=== PATIENT | female | born 1955 | race Caucasian/White ===

== ENCOUNTER 2024-06-02 15:55 | Observation (INO) | payer OTHER, SELFPAY ==
[2024-06-02] VITALS (19 sets, daily range): BP systolic 119–165; BP diastolic 54–77; PULSE 67–87; RESP 14–26; TEMP 36.1–36.9; O2SAT 96–100; BMI 23.6; BMI 24.0
--- NOTE | 2024-06-02 16:03 | DI.RAD.S_ITS ---
PROCEDURE: XR CHEST 1V INDICATIONS: chest pain TECHNIQUE: One view of the chest was acquired. COMPARISON: None. FINDINGS: Surgical changes and devices: None. Lungs and pleura: Lungs are clear. No pleural effusions or pneumothorax. Mediastinum: Mediastinal contours appear normal. Heart size is normal. Bones and chest wall: No suspicious bony lesions. Overlying soft tissues appear unremarkable. IMPRESSION: No acute cardiopulmonary abnormality is seen. Dictated by: Nikolas Davies M.D. on 06/02/2024 at 16:26 Approved by: Nikolas Davies M.D. on 06/02/2024 at 16:26
--- NOTE | 2024-06-02 16:10 | EKG_ITS ---
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
[2024-06-02 16:18] LABS: Basophils Absolute Auto 100 /uL (0-100); Basophils Percent Auto 0.6 % (0-2); Eosinophils Absolute Auto 0 /uL (0-450); Eosinophils Percent Auto 0.1 % (2-4); Hematocrit 21.3 % (36-46); Lymphocytes Absolute Auto 1600 /uL (1100-4500); Lymphocytes Percent Auto 13.3 % (25-40); Mean Corpuscular HGB Conc 29.2 % (30-36); Mean Corpuscular Volume 58.3 fL (80-100); Monocytes Absolute Auto 400 /uL (0-900); Monocytes Percent Auto 3.7 % (3-14); Neutrophils Absolute Auto 9700 /uL (1500-7000); Neutrophils Percent Auto 82.3 % (50-75); Platelet Count 354 X10^3/uL (150-400); Red Blood Cell Count 3.64 X10^6/uL (4.0-5.2); Red Cell Distribution Width 18.9 % (11.6-14.8); White Blood Cell Count 11.8 X10^3/uL (4.5-11.0)
[2024-06-02 16:20] LABS: Add Manual Diff / Slide Review SLIDE REVIEW; Hemoglobin 6.2 g/dL (12.0-16.0)
[2024-06-02 16:23] LABS: INR 1.2 (0.9-1.3); Prothrombin Time 13.3 SECONDS (9.4-12.5)
[2024-06-02 16:26] LABS: PTT Partial Thromboplastin Tim 43 SECONDS (25.1-36.5)
[2024-06-02 16:27] LABS: Alanine Aminotransferase 14 IU/L (<35); Albumin 4.3 g/dL (3.5-5.0); Albumin Globulin Ratio 1.5 (1.0-2.8); Alkaline Phosphatase 85 U/L (38-126); Aspartate Aminotransferase 25 IU/L (14-36); BUN Creatinine Ratio 23.8 (6-22); Bilirubin Total 0.5 mg/dL (0.2-1.3); Blood Urea Nitrogen 24 mg/dL (7-17); Calcium 9.7 mg/dL (8.4-10.2); Carbon Dioxide 21 mmol/L (22-32); Chloride 105 mmol/L (98-107); Creatine Kinase 59 U/L (30-135); Estimated Glomerular Filt Rate 60 mL/min (>60); Globulin 2.9 g/dL (1.7-4.1); Glucose 120 mg/dL (80-110); HEMOLYSIS < 15 (0-50); Lipase 99 U/L (23-300); Magnesium 2.1 mg/dL (1.6-2.3); Potassium 3.9 mmol/L (3.4-5.1); Sodium 136 mmol/L (137-145); Total Protein 7.2 g/dL (6.3-8.2)
[2024-06-02 16:39] LABS: NT-proBNP (BNP-Adult 18+) 428 pg/mL (<125); Troponin I < 0.012 ng/mL (0.01-0.034)
[2024-06-02 16:53] LABS: Hypochromasia 3+; Microcytosis 3+
--- NOTE | 2024-06-02 16:59 | ED_ITS ---
HPI - General Adult General Chief complaint: Syncope Stated complaint: syncope, racing heart Time Seen by Provider: 06/02/24 16:08 Source: patient and family Mode of arrival: Family Vehicle History of Present Illness HPI narrative: 69-year-old woman [place] from [place] history of atrial fibrillation anticoagulated on Eliquis, history of ulcerative colitis with a colectomy and an internal J-pouch follow up by a colorectal surgeon in [place]. Presents today after a syncopal episode walking up a slight incline. She has not been having nausea, vomiting, palpitations no dyspnea but has been feeling a bit more fatigued. She notes she occasionally has bright red blood from her rectum but this is self-limited and it most every 3 weeks. She does have some external hemorrhoidal tags and was concerned that wears where the blood was coming from. She has never had gastritis or gastric ulcers to her knowledge. No fevers, cough, chills no chest pressure or pain. Review of Systems Review of Systems Narrative: Pertinent positive and negative findings as per HPI Patient History Medical History Paroxysmal atrial fibrillation Crohn's disease Social History Smoking Status: Former smoker Smoking Status: Former smoker tobacco type: cigarettes alcohol intake frequency: 0-2 drinks per day Substance Use Type: does not use Exam Initial Vital Signs Initial Vital Signs: Vital Signs Pulse Rate 83 06/02/24 16:06 Pulse Oximetry 100 06/02/24 16:06 General: Healthy appearing, in no acute distress. Able to give a complete and coherent history. Well-nourished well-developed HEENT: Moist mucous membranes, normal sclera with reactive pupils, Respiratory: Lungs are clear to auscultation, no wheezing no rales no rhonchi. Full and symmetrical air movement Cardiac: Regular rate and rhythm no murmurs no bruits Abdomen: Soft, nontender, good bowel tones, no flank pain Rectal exam: Small noninflamed external hemorrhoids. Very small anus she rarely has any formed stools. Q-tip was used for internal exam and does show red blood mixed with stool that is guaiac positive Skin: Slightly pale but otherwise Warm and dry, no rashes Neurologic: Grossly neurologically intact with no obvious asymmetries or abnormalities Extremities: No trauma, well perfused Psych: Cooperative, appropriate insight and affect Course Orders Ordered: ED Orders 06/02/24 16:03 XR chest 1V Stat EKG-12 Lead Stat 06/02/24 16:07 Complete Blood Count AUTO DIFF Stat Comprehensive Metabolic Panel Stat Lipase Stat Magnesium Stat NT-proBNP (BNP-Adult 18+) Stat PTT Partial Thromboplastin Gabriel Stat Prothrombin Time INR Stat Troponin & CK Cardiac Panel Stat 06/02/24 16:26 PRBC [Packed Cells] Stat Type and Screen Stat Acetaminophen (Acetaminophen 325 Mg Tablet) 650 mg PO Q6H PRN PRN Reason: Fever/Mild Pain (1-3) Amlodipine Besylate (Amlodipine 5 Mg Tablet) 5 mg PO DAILY FARHANA Levothyroxine Sodium (Levothyroxine 100 Mcg Tablet) 100 mcg PO DAILY@0600 FARHANA Naloxone HCl (Naloxone 0.4 Mg/Ml Vial) 0.2 mg IV Q2MIN PRN PRN Reason: Opiate Reversal Discontinued Medications Aspirin (Aspirin 81 Mg Chew Tab) 324 mg PO NOW ONE Stop: 06/02/24 16:04 Last Admin: 06/02/24 16:21 Dose: Not Given Documented By: Pantoprazole Sodium (Pantoprazole 40 Mg Vial) 80 mg IV NOW ONE Stop: 06/02/24 17:18 Last Admin: 06/02/24 17:34 Dose: 80 mg Documented By: RLS Vital Signs Vital signs: Vital Signs - 8 hr 06/02/24 16:06 06/02/24 16:07 06/02/24 16:07 Temperature Pulse Rate 83 77 Respiratory Rate 25 H Blood Pressure 150/73 H Pulse Oximetry 100 100 Oxygen Delivery Method 06/02/24 16:09 06/02/24 16:30 06/02/24 16:30 Temperature 98.5 F Pulse Rate 87 84 Respiratory Rate 14 19 Blood Pressure 150/73 H 159/71 H Pulse Oximetry 99 99 Oxygen Delivery Method Room Air 06/02/24 17:00 06/02/24 17:00 06/02/24 17:15 Temperature Pulse Rate 83 84 Respiratory Rate 26 H 17 Blood Pressure 156/72 H Pulse Oximetry 100 100 Oxygen Delivery Method 06/02/24 17:30 06/02/24 17:30 Temperature Pulse Rate 78 Respiratory Rate 20 Blood Pressure 165/77 H Pulse Oximetry 99 Oxygen Delivery Method Medical Decision Making Lab Data 06/02/24 16:07 06/02/24 16:07 Labs: Lab Results 06/02/24 06/02/24 Range/Units 16:07 16:26 WBC 11.8 H (4.5-11.0) X10^3/uL RBC 3.64 L (4.0-5.2) X10^6/uL Hgb 6.2 L* (12.0-16.0) g/dL Hct 21.3 L (36-46) % MCV 58.3 L (80-100) fL MCH 17.0 L (26-34) PG MCHC 29.2 L (30-36) % RDW 18.9 H (11.6-14.8) % Plt Count 354 (150-400) X10^3/uL Neut % (Auto) 82.3 H (50-75) % Lymph % (Auto) 13.3 L (25-40) % [place] % (Auto) 3.7 (3-14) % Eos % (Auto) 0.1 L (2-4) % Baso % (Auto) 0.6 (0-2) % Neut # (Auto) 9700 H (7507-2476) /uL Lymph # (Auto) 1600 (4959-9186) /uL [place] # (Auto) 400 (0-900) /uL Eos # (Auto) 0 (0-450) /uL Baso # (Auto) 100 (0-100) /uL RBC Morphology See below Hypochromasia 3+ H Microcytosis 3+ H PT 13.3 H (9.4-12.5) SECONDS INR 1.2 (0.9-1.3) APTT 43 H (25.1-36.5) SECONDS Sodium 136 L (137-145) mmol/L Potassium 3.9 (3.4-5.1) mmol/L Chloride 105 (98-107) mmol/L Carbon Dioxide 21 L (22-32) mmol/L BUN 24 H (7-17) mg/dL Creatinine 1.01 (0.52-1.04) mg/dL Estimated GFR 60 (>60) mL/min BUN/Creatinine Ratio 23.8 H (6-22) Glucose 120 H (80-110) mg/dL Calcium 9.7 (8.4-10.2) mg/dL Magnesium 2.1 (1.6-2.3) mg/dL Total Bilirubin 0.5 (0.2-1.3) mg/dL AST 25 (14-36) IU/L ALT 14 (<35) IU/L Alkaline Phosphatase 85 (38-126) U/L Total Creatine Kinase 59 (30-135) U/L Troponin I < 0.012 (0.01-0.034) ng/mL NT-Pro-B Natriuret Pep 428 H (<125) pg/mL Total Protein 7.2 (6.3-8.2) g/dL Albumin 4.3 (3.5-5.0) g/dL Globulin 2.9 (1.7-4.1) g/dL Albumin/Globulin Ratio 1.5 (1.0-2.8) Lipase 99 (23-300) U/L Blood Type A Positive Antibody Screen Negative Crossmatch See Detail MDM Narrative Medical decision making narrative: CC: Syncopal episode Complicating co-morbidities: Paroxysmal atrial fibrillation, anticoagulated, history of ulcerative colitis Data collected from: patient Social determinants of health that may influence the patients condition: Patient is on vacation, currently lives in [place] Differential considered: AFib with RVR, congestive heart failure, acute coronary syndrome TIA Exam documented above, pertinent findings include: Exam is relatively benign. Rectal exam shows very small anus but she is guaiac positive Lab Test results independently reviewed as above. Pertinent findings: Chemistries are reassuring ProBNP is minimally elevated at 428 Troponin is undetectable CBC shows hemoglobin of 6.2 with a hematocrit of 21.3. MCV is 58.3 platelet count is appropriate Independently reviewed EKG: Sinus rhythm at a rate of 75 with no acute ischemic changes Imaging studies independently reviewed: Chest x-ray is unremarkable no acute infiltrates or congestive heart failure Consultations: Care is discussed with Dr. Whitt, General surgery. She agrees with hospitalization, transfusion and discharge with outpatient follow up with her colorectal surgeon when she gets back to [place] Treatments: Fluids, 2 units of packed cells will be administered, 80 mg of IV Protonix Discussion: 69-year-old woman with a syncopal episode that likely is related to her hemoglobin of 6.2 secondary to chronic blood loss from her GI tract unclear if it is related to bleeding from her colon surgery or upper endoscopy. It does look like it is chronic and finally hit the tipping point where she was having hemodynamic symptoms. We will be admitted to our hospitalist service, cardiac workup will be completed. Will anticipate discharge home for outpatient GI follow up with her colorectal surgeon unless symptoms change or she has more prolific bleed bleeding appreciated. Discharge Plan Departure Patient Disposition: Admitted as Observation Clinical Impression: Syncope due to orthostatic hypotension, Acute blood loss anemia, AF (paroxysmal atrial fibrillation), Anticoagulated Admit Date/Time: 06/02/24 17:34 Admit Provider: Gurpreet Bennett V
[2024-06-02] MEDS: PANTOPRAZOLE 40 MG VIAL 80 MG IV (17:34)
--- NOTE | 2024-06-02 17:44 | PM.HP.1 ---
History of Present Illness History of Present Illness Date Patient Seen: 06/02/24 Time Patient Seen: 17:15 Date of Onset of Symptoms: 06/02/24 Chief complaint: syncope, racing heart Narrative: 69-year-old woman visiting [place] from her home in [place] had just arrived and was walking on the beach when she experienced a syncopal episode. She felt that her heart was racing. She has had a history of ulcerative colitis, status post total colectomy with internal pouch, and mostly experiences diarrheal stools will with visible blood every 2-3 weeks. She also has external hemorrhoids that intermittently flare and bleed. She is followed by sap pi architect in [place]. She had a single episode of paroxysmal atrial fibrillation last May, without recurrence, and is on Eliquis 5 mg twice daily. She denies NSAID or aspirin use. No nausea, vomiting, abdominal pain, chest pain, shortness of breath, and denies injuries associated with her syncopal episode. She was evaluated by medics and brought to the emergency department for further evaluation. She has hypothyroidism and takes levothyroxine 100 mg daily, hypertension on amlodipine 5 mg daily, hyperlipidemia on rosuvastatin 5 mg daily and also takes chewable calcium and apple vinegar chews. [facility] Medical History Paroxysmal atrial fibrillation Crohn's disease Social History Smoking Status: Former smoker Exam Vital Signs (past 8 hours): - 06/02/24 16:06 06/02/24 16:07 06/02/24 16:07 Temperature Pulse Rate 83 77 Respiratory Rate 25 H Blood Pressure 150/73 H Pulse Oximetry 100 100 Oxygen Delivery Method 06/02/24 16:09 06/02/24 16:30 06/02/24 16:30 Temperature 98.5 F Pulse Rate 87 84 Respiratory Rate 14 19 Blood Pressure 150/73 H 159/71 H Pulse Oximetry 99 99 Oxygen Delivery Method Room Air 06/02/24 17:00 06/02/24 17:00 Temperature Pulse Rate 83 Respiratory Rate 26 H Blood Pressure 156/72 H Pulse Oximetry 100 Oxygen Delivery Method Oxygen Delivery Method Room Air Narrative Exam Narrative: GENERAL: This is a well-nourished, well-developed pale appearing female patient, in no apparent distress. HEAD: Atraumatic. Normocephalic. No temporal or scalp tenderness. EYES: Pupils equal round and reactive. Extraocular motions intact. No scleral icterus. No injection or drainage. ENT: Mucous membranes pale and moist. NECK: Trachea midline. No JVD, bruits or lymphadenopathy. Supple, nontender, no meningeal signs. CARDIOVASCULAR: Regular rate and rhythm without murmurs, gallops, or rubs. RESPIRATORY: Clear to auscultation. GASTROINTESTINAL: Abdomen soft, non-tender, nondistended. EXTREMITIES: No clubbing, cyanosis, or edema. BACK: Nontender without deformity or crepitance. No flank tenderness. NEUROLOGIC: Alert, oriented, speech fluent, full upper and lower motor strength, no focal deficits evident. DERMATOLOGIC: No rashes or skin lesions. Objective ECG Impression: Normal sinus rhythm at 75 beats per minute, no ischemic changes Imaging Chest x-ray: Radiologist's impression: No acute cardiopulmonary abnormalities seen. Labs 06/02/24 16:07 06/02/24 16:07 Labs: Laboratory Results - last 24 hr 06/02/24 06/02/24 16:07 16:26 WBC 11.8 H RBC 3.64 L Hgb 6.2 L* Hct 21.3 L MCV 58.3 L MCH 17.0 L MCHC 29.2 L RDW 18.9 H Plt Count 354 Neut % (Auto) 82.3 H Lymph % (Auto) 13.3 L [place] % (Auto) 3.7 Eos % (Auto) 0.1 L Baso % (Auto) 0.6 Neut # (Auto) 9700 H Lymph # (Auto) 1600 [place] # (Auto) 400 Eos # (Auto) 0 Baso # (Auto) 100 RBC Morphology See below Hypochromasia 3+ H Microcytosis 3+ H PT 13.3 H INR 1.2 APTT 43 H Sodium 136 L Potassium 3.9 Chloride 105 Carbon Dioxide 21 L BUN 24 H Creatinine 1.01 Estimated GFR 60 BUN/Creatinine Ratio 23.8 H Glucose 120 H Calcium 9.7 Magnesium 2.1 Total Bilirubin 0.5 AST 25 ALT 14 Alkaline Phosphatase 85 Total Creatine Kinase 59 Troponin I < 0.012 NT-Pro-B Natriuret Pep 428 H Total Protein 7.2 Albumin 4.3 Globulin 2.9 Albumin/Globulin Ratio 1.5 Lipase 99 Blood Type A Positive Antibody Screen Negative Crossmatch See Detail Assessment & Plan Assessment & Plan narrative: 1. Severe microcytic anemia. Likely due to iron deficiency from chronic occult gastrointestinal bleeding. Transfuse 2 units of packed red blood cells. She is hemodynamically stable. Case reviewed with surgery but at this point she may return home to her primary gastroenterology team for an outpatient workup, given the likely chronic and slow nature of bleeding. Administer proton pump inhibitor on admission and advised outpatient OTC PPI therapy until seen by her primary team. 2. Syncope due to 1. Monitor on telemetry. No other worrisome process evident. 3. Paroxysmal atrial fibrillation. Hold Eliquis at this point. This can likely be held until she is seen as she has not had further episodes beyond the 1st episode she had 1 year ago. 3. Hypertension. Continue routine medication. 4. Hyperlipidemia. Continue routine medication. 5. Hypothyroidism. Continue routine medication. 6. DVT prophylaxis: Sequential compression devices. 7. Code status: Full code. This is reviewed and affirmed on admission. Quality VTE Deep Vein Thrombosis/Pulmonary Embolism Present on Admission: No MIPS - Admit I confirm the patient?s Advance Care Plan is present, Code status is documented, Surrogate decision maker is in patient?s record [If Yes, STOP here]: Yes MIPS - Meds 'Current medications' to include all prescriptions, [id number] products, herbals, cannabis/cannabidiol products, and vitamin/mineral/dietary (nutritional) supplements. I have utilized all available resources to obtain, update, or review the patient?s current medications. [If Yes, STOP here]: Yes PROFEE Charge Codes Initial inpatient/observation care: 22016
--- NOTE | 2024-06-02 18:28 | PC.NURSE ---
blood infusing without incident.
[2024-06-03 00:05] VITALS: BP 130/57; PULSE 66; RESP 17; RESP 18; TEMP 36.4; O2SAT 98
[2024-06-03 00:19] VITALS: PULSE 71
--- NOTE | 2024-06-03 00:20 | PC.NURSE ---
2 units PRBCs tranfused as ordered. No adverse reactions noted. VSS. No signs of active bleeding. Patient denies dizziness, CP, SOB. Cont tele in place. H/H recheck scheduled for 0500 per MD Lee. Plan of care ongoing.
[2024-06-03 05:33] VITALS: BP 126/62; PULSE 61; RESP 18; TEMP 36.7; O2SAT 97
[2024-06-03] MEDS: LEVOTHYROXINE 100 MCG TABLET PO (05:42)
[2024-06-03 06:19] LABS: Add Manual Diff / Slide Review NO; Basophils Absolute Auto 100 /uL (0-100); Eosinophils Absolute Auto 100 /uL (0-450); Eosinophils Percent Auto 2.3 % (2-4); Hematocrit 26.1 % (36-46); Hemoglobin 8.2 g/dL (12.0-16.0); Lymphocytes Absolute Auto 1700 /uL (1100-4500); Lymphocytes Percent Auto 26.3 % (25-40); Mean Corpuscular HGB Conc 31.5 % (30-36); Mean Corpuscular Hemoglobin 20.8 PG (26-34); Mean Corpuscular Volume 66.1 fL (80-100); Monocytes Absolute Auto 700 /uL (0-900); Monocytes Percent Auto 10.6 % (3-14); Neutrophils Absolute Auto 3800 /uL (1500-7000); Neutrophils Percent Auto 59.8 % (50-75); Platelet Count 264 X10^3/uL (150-400); Red Blood Cell Count 3.95 X10^6/uL (4.0-5.2); Red Cell Distribution Width 28.1 % (11.6-14.8); White Blood Cell Count 6.4 X10^3/uL (4.5-11.0)
[2024-06-03 06:40] LABS: Anisocytosis 2+; Hypochromasia 2+; Microcytosis 3+; Platelet Estimate Adequate on smear
[2024-06-03 08:19] VITALS: BP 135/66; PULSE 68; RESP 15; TEMP 37; O2SAT 98
--- NOTE | 2024-06-03 09:18 | P.DS_ITS ---
History of Present Illness History of Present Illness Chief complaint: syncope, racing heart Narrative: From H&P: 69-year-old woman visiting [place] from her home in [place] had just arrived and was walking on the beach when she experienced a syncopal episode. She felt that her heart was racing. She has had a history of ulcerative colitis, status post total colectomy with internal pouch, and mostly experiences diarrheal stools will with visible blood every 2-3 weeks. She also has external hemorrhoids that intermittently flare and bleed. She is followed by environmental economist in [place]. She had a single episode of paroxysmal atrial fibrillation last May, without recurrence, and is on Eliquis 5 mg twice daily. She denies NSAID or aspirin use. No nausea, vomiting, abdominal pain, chest pain, shortness of breath, and denies injuries associated with her syncopal episode. She was evaluated by medics and brought to the emergency department for further evaluation. She has hypothyroidism and takes levothyroxine 100 mg daily, hypertension on amlodipine 5 mg daily, hyperlipidemia on rosuvastatin 5 mg daily and also takes chewable calcium and apple vinegar chews. Discharge Providers Provider Date of admission: 06/02/24 17:34 Discharge Date: 06/03/24 Consults: General surgery Discharge provider: Elias Frias MD Summary Hospital Course Discharge Diagnosis: 1. Severe microcytic anemia. Likely due to iron deficiency from chronic occult gastrointestinal bleeding. Transfuse 2 units of packed red blood cells. She is hemodynamically stable. Case reviewed with surgery but at this point she may return home to her primary gastroenterology team for an outpatient workup, given the likely chronic and slow nature of bleeding. Administer proton pump inhibitor on admission and advised outpatient OTC PPI therapy until seen by her primary team. 2. Syncope due to 1. Monitor on telemetry. No other worrisome process evident. 3. Paroxysmal atrial fibrillation. Hold Eliquis at this point. This can likely be held until she is seen as she has not had further episodes beyond the 1st episode she had 1 year ago. 3. Hypertension. Continue routine medication. 4. Hyperlipidemia. Continue routine medication. 5. Hypothyroidism. Continue routine medication. 6. DVT prophylaxis: Sequential compression devices. 7. Code status: Full code. This is reviewed and affirmed on admission. Hospital Course: She was admitted to the hospital and transfused with 2 units of packed red blood cells. There is no evidence of an acute high rate GI bleed. She likely has slow blood loss anemia and iron-deficiency as well. She was felt to be stable for discharge after transfusion with improved hemoglobin and close follow up with her outpatient team. Status at Discharge Cognitive/behavioral status at discharge: oriented Functional status at discharge: independent ambulation Overall status at discharge: patient is back to baseline Time Spent with Patient Time spent: Greater than 30 minutes Exam Vital Signs (past 8 hours): - 06/03/24 05:33 06/03/24 08:19 Temperature 98.1 F 98.6 F Pulse Rate 61 68 Respiratory Rate 18 15 Blood Pressure 126/62 135/66 Pulse Oximetry 97 98 Oxygen Flow Rate 0 0 Oxygen Delivery Method Room Air Oxygen Flow Rate 0 Narrative Exam Narrative: NAD, alert and oriented. Fluent speech. Lungs are clear, normal rate and effort. Heart is regular, no murmur gallop or rub. Abdomen is soft, non distended. Extremities are free of edema. Objective ECG Impression: Intervals [place] Rate: 75 P: 70 [place]: 150 QRS: 0 QRSD: 82 T: 39 QT: 412 QTc: 460 Interpretive Statements Normal sinus rhythm Imaging Chest x-ray: Radiologist's impression: No acute cardiopulmonary abnormalities seen. Labs 06/03/24 06:00 06/02/24 16:07 Labs: Laboratory Results - last 24 hr 06/02/24 06/02/24 06/03/24 16:07 16:26 06:00 WBC 11.8 H 6.4 RBC 3.64 L 3.95 L Hgb 6.2 L* 8.2 L Hct 21.3 L 26.1 L MCV 58.3 L 66.1 L D MCH 17.0 L 20.8 L MCHC 29.2 L 31.5 RDW 18.9 H 28.1 H Plt Count 354 264 Neut % (Auto) 82.3 H 59.8 D Lymph % (Auto) 13.3 L 26.3 [place] % (Auto) 3.7 10.6 Eos % (Auto) 0.1 L 2.3 Baso % (Auto) 0.6 1.0 Neut # (Auto) 9700 H 3800 Lymph # (Auto) 1600 1700 [place] # (Auto) 400 700 Eos # (Auto) 0 100 Baso # (Auto) 100 100 Platelet Estimate Adequate on smear RBC Morphology See below See below Hypochromasia 3+ H 2+ H Anisocytosis 2+ H Microcytosis 3+ H 3+ H PT 13.3 H INR 1.2 APTT 43 H Sodium 136 L Potassium 3.9 Chloride 105 Carbon Dioxide 21 L BUN 24 H Creatinine 1.01 Estimated GFR 60 BUN/Creatinine Ratio 23.8 H Glucose 120 H Calcium 9.7 Magnesium 2.1 Total Bilirubin 0.5 AST 25 ALT 14 Alkaline Phosphatase 85 Total Creatine Kinase 59 Troponin I < 0.012 NT-Pro-B Natriuret Pep 428 H Total Protein 7.2 Albumin 4.3 Globulin 2.9 Albumin/Globulin Ratio 1.5 Lipase 99 Blood Type A Positive Antibody Screen Negative Crossmatch See Detail [facility] Medical History Paroxysmal atrial fibrillation Crohn's disease Social History Smoking Status: Former smoker alcohol intake: current Discharge Assessment & Plan Assessment and Plan Assessment: 1. Severe microcytic anemia. Likely due to iron deficiency from chronic occult gastrointestinal bleeding. Transfuse 2 units of packed red blood cells. She is hemodynamically stable. Case reviewed with surgery but at this point she may return home to her primary gastroenterology team for an outpatient workup, given the likely chronic and slow nature of bleeding. Administer proton pump inhibitor on admission and advised outpatient OTC PPI therapy until seen by her primary team. 2. Syncope due to 1. Monitor on telemetry. No other worrisome process evident. 3. Paroxysmal atrial fibrillation. Hold Eliquis at this point. This can likely be held until she is seen as she has not had further episodes beyond the 1st episode she had 1 year ago. 3. Hypertension. Continue routine medication. 4. Hyperlipidemia. Continue routine medication. 5. Hypothyroidism. Continue routine medication. 6. DVT prophylaxis: Sequential compression devices. 7. Code status: Full code. This is reviewed and affirmed on admission. Plan of Treatment: Discharge home, we will hold Eliquis until she follows up with her primary environmental economist. We will start a PPI b.i.d.. Discharge Plan Discharge Plan Patient Disposition: Home Provider Discharge Comment: Stable for discharge, we will hold Eliquis and she will follow up with her primary team. Discharge orders & Medications Prescriptions: New pantoprazole [Protonix] 40 mg tablet,delayed release (DR/EC) 40 mg PO BID Qty: 60 2RF Continued amlodipine 5 mg tablet 5 mg PO DAILY levothyroxine 100 mcg tablet 100 mcg PO DAILY melatonin 3 mg Tablet 3 mg PRN PRN (Reason: Sleep) rosuvastatin 5 mg tablet 5 mg PO DAILY Discontinued Eliquis 5 mg tablet 5 mg PO BID Medication counseling provided by Pharmacist: No Discharge Health Status Multidrug resistant organism: No MDRO Diet/Activity/Treatments Diet: Diet as Tolerated Activity: As tolerated. Visit Report/Discharge Packet Instructions: Anemia Stand Alone Forms: Patient Portal/API Discharge Data Attending Provider: Gurpreet Bennett V Admit Date/Time: 06/02/24 17:34 Quality VTE Deep Vein Thrombosis/Pulmonary Embolism Present on Admission: No MIPS - DC The patient has a history of heart transplant or Left Ventricular Assist Device (LVAD). If yes, STOP here.: No The patient has current or prior documentation of left ventricular ejection fraction (LVEF) less than or equal to 40%, or moderate or severely depressed left ventricular systolic function.: No
--- NOTE | 2024-06-03 10:22 | CM.DANOTE ---
Patient is a 69 yo female who was admitted OBS Status on 06/02/24 for Syncope. Pt has [employer] ADV for insurance and her PCP is in [place]. EMR was reviewed. Per MD, pt with hx of ulcerative colitis with total colectomy and crohns and admitted for syncope and anemia and received 2 units of blood and now medically stable to discharge home today. SW met bedside with pt and spouse and explained role and they confirm they live at home in [place] and both are active and independent with ADLs and pt does not use DME for ambulation and still drives. Pt and spouse live in [place] and were on the [facility] for vacation for a few days and pt confirms that she feels much better and ambulating with steady gait and independent in room and hopeful for discharge home today via spouse POV and they plan to go right back to [place] at d/c. They do not anticipate any discharge needs at this time. Plan: Patient to d/c home today via spouse POV and outpt f/u and no further SW needs at this time. CELINE Dia Discharge Planning/Care Management CM Discharge Assessment Start: 06/03/24 10:20 Freq: Status: Active Protocol: Document 06/03/24 10:20 BF (Rec: 06/03/24 10:21 BF [id number]) Discharge Planning Assessment Assigned Lockstitch Binder CELINE Gustafson DPOA/Assigned Designee Name spouse Abraham Contact Information [phone] Advance Directives? No Advance Directives on File No History Provided By Patient,Significant Other, Medical Record Has Patient been admitted in last 30 No days? Prior Living Arrangements House Household Members spouse Type of transporation used prior to Drives own vehicle admit Independent with ADL's Yes Is patient alert and oriented? Yes Caregiver for Another No Barriers to Discharge No Discharge Plan Home Transportation Arrangement spouse bedside and plans to transport at d/c today Referrals Initiated None needed Whiteboard Updated in Patient Room with Yes name and ext. # of Lockstitch Binder Review Status In Process Please Provide Date Initial DC 06/03/24 Assessment Was Performed Next Review Type Continued Stay Review
== END 2024-06-03 10:25 | disposition home or self-care (01) ==
LOC: ED 17:25 → AC 17:34
PROVIDERS: Admitting Provider Internal Medicine; Emergency Provider Emergency Medicine; Referring Provider Emergency Medicine; Visit Provider Internal Medicine
DX: D50.9 Iron deficiency anemia, unspecified (principal); K92.2 Gastrointestinal hemorrhage, unspecified; K64.4 Residual hemorrhoidal skin tags; I48.0 Paroxysmal atrial fibrillation; I10 Essential (primary) hypertension; E78.5 Hyperlipidemia, unspecified; E03.9 Hypothyroidism, unspecified; Z79.01 Long term (current) use of anticoagulants
CPT/HCPCS: 36415; 36430; 71045; 80053; 82550; 83690; 83735; 83880; 84484; 85025; 85610; 85730; 86850; 86900; 86901; 93005; 99284; 99285; G0378; P9016; J2470